=== PATIENT | female | born 1985 | race American Indian/Alaskan Native ===

== ENCOUNTER 2017-03-04 17:57 | Emergency (ER) | payer MEDICAID ==
[2017-03-04 18:10] VITALS: BP 133/77
[2017-03-04] MEDS ORDERED: Azithromycin 250 MG Tab PO ONE (19:19)
[2017-03-04] MEDS ORDERED: cefTRIAXone 250 MG, Lidocaine 1% 0.9 ML IM ONE ×2 (19:19)
[2017-03-04] MEDS ORDERED: metroNIDAZOLE 250 MG Tab PO ONE (19:19)
[2017-03-04] MEDS ORDERED: Phenazopyridine 95 MG Tab PO ONE (19:20)
--- NOTE | 2017-03-04 19:27 | EDM.PDOC ---
ED HPI GENERAL MEDICAL PROBLEM - General Chief Complaint: Abdominal Pain Stated Complaint: BODY ACHES, ABD PAINS, [id number] Time Seen by Provider: 03/04/17 19:17 Source of Information: Reports: Patient History Limitations: Reports: No Limitations - History of Present Illness INITIAL COMMENTS - FREE TEXT/NARRATIVE: This 32 yo female patient reports to the ED with left lower abdominal pain and pain with urination. The patient reports her symptoms started on Saturday (3 days ago) and been getting worse. The patient has not been seen in the clinic. Onset Date: 03/02/17 Duration: Constant, Getting Worse Location: Reports: Abdomen (llq) Quality: Reports: Ache, Dull Severity: Moderate Improves with: Reports: None Worsens with: Reports: None Associated Symptoms: Reports: No Other Symptoms Left Lower Abdomen Pain Score (Numeric/FACES): 7 - Related Data Allergies Allergy/AdvReac Type Severity Reaction Status Date / Time No Known Allergies Allergy Verified 03/04/17 18:06 Home Meds: Home Meds . 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: Musculoskeletal History: Reports: None Neurological History: Reports: None Psychiatric History: Reports: None Endocrine/Metabolic History: Reports: None Hematologic History: Reports: None Immunologic History: Reports: None Oncologic (Cancer) History: Reports: None Dermatologic History: Reports: None - Infectious Disease History Infectious Disease History: Reports: None - Past Surgical History GI Surgical History: Reports: Other (See Below) Other GI Surgeries/Procedures: pancreatic pseudocyst Female Surgical History: Reports: Section Musculoskeletal Surgical History: Reports: None Social & Family History - Tobacco Use Smoking Status *Q: Light Tobacco Smoker Years of Tobacco use: 8 Packs/Tins Daily: 0.1 Second Hand Smoke Exposure: No - Caffeine Use Caffeine Use: Reports: Coffee, Soda - Alcohol Use Days Per Week of Alcohol Use: 0 - Recreational Drug Use Recreational Drug Use: No ED ROS GENERAL - Review of Systems Review Of Systems: ROS reveals no pertinent complaints other than HPI. ED EXAM, RENAL/ - Physical Exam Exam: See Below Exam Limited By: No Limitations General Appearance: Alert, WD/WN, Moderate Distress Eye Exam: Bilateral Eye: EOMI, Normal Inspection, PERRL Ears: Normal External Exam, Normal Canal, Hearing Grossly Normal, Normal TMs Nose: Normal Inspection, Normal Mucosa, No Blood Throat/Mouth: Normal Inspection, Normal Lips, Normal Teeth, Normal Gums, Normal Oropharynx, Normal Voice, No Airway Compromise Head: Atraumatic, Normocephalic Neck: Normal Inspection, Supple, Non-Tender, Full Range of Motion Respiratory/Chest: No Respiratory Distress, Lungs Clear, Normal Breath Sounds, No Accessory Muscle Use, Chest Non-Tender Cardiovascular: Normal Peripheral Pulses, Regular Rate, Rhythm, No Edema, No Gallop, No JVD, No Murmur, No Rub GI/Abdominal: Tender (LLQ) (Female) Exam: Deferred Rectal (Female) Exam: Deferred Back Exam: Normal Inspection, Full Range of Motion, NT Extremities: Normal Inspection, Normal Range of Motion, Non-Tender, Normal Capillary Refill, No Pedal Edema Neurological: Alert, Oriented, CN II-XII Intact, Normal Cognition, Normal Gait, Normal Reflexes, No Motor/Sensory Deficits Psychiatric: Normal Affect, Normal Mood Skin Exam: Warm, Dry, Intact, Normal Color, No Rash Lymphatic: No Adenopathy Course - Vital Signs Last Recorded V/S: Last Vital Signs Temp 37.9 C 03/04/17 18:06 Pulse 112 H 03/04/17 18:06 Resp 16 03/04/17 18:06 BP 133/77 03/04/17 18:06 Pulse Ox 99 03/04/17 18:06 - Orders/Labs/Meds Orders: Active Orders 24 hr Category Date Time Status CHLAMYDIA TRACHOMATIS/GC AMPLF Routine Lab 03/04/17 19:13 Ordered CULTURE URINE [RM] Stat Lab 03/04/17 19:20 Ordered Labs: Laboratory Tests 03/04/17 Range/Units 18:20 Urine Color Yellow (YELLOW) Urine Appearance Slightly cloudy (CLEAR) Urine pH 6.0 (5.0-9.0) Ur Specific [place] 1.020 (1.005-1.030) Urine Protein 30 H (NEGATIVE) Urine Glucose (UA) Negative (NEGATIVE) Urine Ketones Negative (NEGATIVE) Urine Occult Blood Negative (NEGATIVE) Urine Nitrite Negative (NEGATIVE) Urine Bilirubin Small H (NEGATIVE) Urine Urobilinogen 1.0 (0.2-1.0) mg/dL Ur Leukocyte Esterase Negative (NEGATIVE) Urine RBC 0-5 /HPF Urine WBC 20-30 H (0-5/HPF) /HPF Ur Epithelial Cells Many H /HPF Urine Bacteria Many H (0-FEW/HPF) /HPF Urine Mucus Many H /LPF Urine Trichomonas Present H (0/HPF) /HPF Meds: Medications Discontinued Medications Generic Name Dose Route Start Last Admin Trade Name Cresencio PRN Reason Stop Dose Admin Azithromycin 1,000 mg 03/04/17 19:19 Zithromax PO 03/04/17 19:20 ONETIME ONE Ceftriaxone Sodium 250 mg/ 0 mg 03/04/17 19:19 Lidocaine HCl 0.9 ml IM 03/04/17 19:20 ONETIME ONE Metronidazole 250 mg 03/04/17 19:19 Metronidazole PO 03/04/17 19:20 ONETIME ONE Phenazopyridine HCl 190 mg 03/04/17 19:20 Urinary Pain Relief PO 03/04/17 19:21 ONETIME ONE Departure - Departure Time of Disposition: 19:22 Disposition: Home, Self-Care 01 Condition: Fair Clinical Impression: Trichimoniasis UTI (urinary tract infection) Qualifiers: Urinary tract infection type: site unspecified Hematuria presence: without hematuria Qualified Code(s): N39.0 - Urinary tract infection, site not specified - Discharge Information Instructions: Urinary Tract Infection, Adult, [id number], Sexually Transmitted Disease, [id number] Forms: ED Department Discharge Care Plan Goals: The patient was advised of the examination and lab results during the visit. The patient was given an oral dose of Metronidazole (2 grams), Rocephin (250 mg) , Azithromycin (1 gram) and Pyridium (190 mg) while in the ED. The patient was given a script for Cipro (500 mg) to take 1 by mouth 2 times per day for 3 days and Pyridium (200 mg) to take 1 by mouth 3 times per day for 2 days. The patient was advised to have her partner report to the clinic for STD testing and treatment also. If the patient has any additional symptoms or concerns, the patient should follow-up with her primary care facility or return to the emergency department. - My Orders Last 24 Hours: My Active Orders 03/04/17 19:13 CHLAMYDIA TRACHOMATIS/GC AMPLF Routine 03/04/17 19:20 CULTURE URINE [RM] Stat - Assessment/Plan Last 24 Hours: My Active Orders 03/04/17 19:13 CHLAMYDIA TRACHOMATIS/GC AMPLF Routine 03/04/17 19:20 CULTURE URINE [] Stat
== END 2017-03-04 19:43 | disposition home or self-care (01) ==
LOC: DL.ED 17:57 → EEVIPCON 17:57 → DL.ED 19:43
DX: A59.9 Trichomoniasis, unspecified (principal); N39.0 Urinary tract infection, site not specified; F17.210 Nicotine dependence, cigarettes, uncomplicated
CPT/HCPCS: 81001; 87086; 87491; 87591; 96372; 99284; A9270; J0696

== ENCOUNTER 2023-12-14 04:06 | Observation (INO) | payer MEDICAID ==
[2023-12-14] MEDS: Lidocaine 1% with EPINEPHrine 1:100,000 20 ML MDV INJECT ONE (04:38)
[2023-12-14] MEDS: Tranexamic Acid 1,000 MG/10 ML Vial TOP ONE (04:40)
[2023-12-14 04:41] LABS: BASOPHILS PERCENT AUTO 0.3 % (0.0-1.0); EOSINOPHILS PERCENT AUTO 0.7 % (1.0-3.0); HEMATOCRIT 38.4 % (37.0-47.0); HEMOGLOBIN 12.7 g/dL (12.0-16.0); LYMPHOCYTES PERCENT AUTO 16.3 % (20.5-50.1); MEAN CORPUSCULAR HEMOGLOBIN 30.3 pg (27.0-34.0); MEAN CORPUSCULAR HGB CONC 33.1 g/dL (33.0-35.0); MEAN CORPUSCULAR VOLUME 91.6 fL (80-100); MONOCYTES PERCENT AUTO 6.8 % (2-8); NEUTROPHILS PERCENT AUTO 75.9 % (42.2-75.2); PLATELET COUNT,PLT 78 10^3/uL (150-450); RED BLOOD CELL COUNT 4.19 10^6/uL (4.2-5.4); WHITE BLOOD CELL COUNT,WBC 6.2 10^3/uL (5.0-10.0)
[2023-12-14] MEDS: Tranexamic Acid 1,000 MG/10 ML Vial ONE (04:45)
[2023-12-14 05:01] LABS: A/G RATIO 0.9; ALBUMIN 3.7 g/dL (3.4-5.0); ANION GAP 13.8 mEq/L (7-13); BILIRUBIN TOTAL 1.5 mg/dL (0.2-1.0); BUN/CREATININE RATIO 13.4 (No establ ref range); CALCIUM 8.3 mg/dL (8.5-10.1); CREATININE 0.97 mg/dL (0.55-1.02); EST CRCL DRUG DOSING (CG) 75.04 mL/min; POTASSIUM,K 3.8 mmol/L (3.5-5.1); PROTEIN TOTAL,TP 7.6 g/dL (6.4-8.2)
[2023-12-14 05:04] LABS: INR 1.1 (0.9-1.2); PROTHROMBIN TIME 11.3 SEC (9.0-12.0)
[2023-12-14] MEDS: Cephalexin 500 MG Cap PO ONE (06:00)
[2023-12-14] MEDS ORDERED: Sodium Chloride 0.9% 10 ML Syringe FLUSH PRN (07:02)
[2023-12-14 10:05] LABS: BASOPHILS PERCENT AUTO 0.3 % (0.0-1.0); HEMATOCRIT 32.9 % (37.0-47.0); HEMOGLOBIN 10.9 g/dL (12.0-16.0); LYMPHOCYTES PERCENT AUTO 18.8 % (20.5-50.1); MEAN CORPUSCULAR HEMOGLOBIN 30.6 pg (27.0-34.0); MEAN CORPUSCULAR HGB CONC 33.1 g/dL (33.0-35.0); MEAN CORPUSCULAR VOLUME 92.4 fL (80-100); MONOCYTES PERCENT AUTO 7.3 % (2-8); NEUTROPHILS PERCENT AUTO 72.6 % (42.2-75.2); PLATELET COUNT,PLT 64 10^3/uL (150-450); RED BLOOD CELL COUNT 3.56 10^6/uL (4.2-5.4); WHITE BLOOD CELL COUNT,WBC 5.7 10^3/uL (5.0-10.0)
[2023-12-14] MEDS: Lisinopril 10 MG Tab PO SCH (10:18)
[2023-12-14] MEDS: Gabapentin 100 MG Cap PO SCH (10:18)
[2023-12-14 11:38] VITALS: BP 131/68; PULSE 74
[2023-12-14] MEDS: oxyCODONE 5 MG Tab PO PRN (11:42)
[2023-12-14] MEDS: Ferrous Sulfate 325 MG Tab PO SCH (11:43)
[2023-12-14] MEDS: Cephalexin 500 MG Cap ONE (16:55)
[2023-12-14] MEDS: Cephalexin 500 MG Cap PO SCH (17:03)
[2023-12-14] MEDS ORDERED: Cephalexin 500 MG Cap PO ONE (17:49)
[2023-12-14] MEDS ORDERED: Gabapentin 100 MG Cap PO SCH (21:00)
== END 2023-12-14 17:50 | disposition home or self-care (01) ==
LOC: DL.ED 04:06 → DL.MS 06:03
PROVIDERS: ADMIT Family Medicine Adult Medicine; ATTEND Family Medicine Adult Medicine
DX: R04.0 Epistaxis (principal); D68.9 Coagulation defect, unspecified; C53.9 Malignant neoplasm of cervix uteri, unspecified; Z88.5 Allergy status to narcotic agent; Z79.899 Other long term (current) drug therapy
CPT/HCPCS: 36415; 80053; 85025; 85610; A9270; 30903; 99283; 99284-25; G0378; J3490

== ENCOUNTER 2024-04-03 16:15 | Emergency (ER) | payer MEDICAID ==
[2024-04-03] MEDS ORDERED: Sodium Chloride 0.9% 10 ML Syringe FLUSH PRN (17:18)
[2024-04-03 17:20] VITALS: BP 130/87; PULSE 105
[2024-04-03 17:37] LABS: BASOPHILS PERCENT AUTO 0.3 % (0.0-1.0); EOSINOPHILS PERCENT AUTO 0.3 % (1.0-3.0); HEMOGLOBIN 10.3 g/dL (12.0-16.0); LYMPHOCYTES PERCENT AUTO 13.7 % (20.5-50.1); MEAN CORPUSCULAR HEMOGLOBIN 30.5 pg (27.0-34.0); MEAN CORPUSCULAR HGB CONC 32.2 g/dL (33.0-35.0); MEAN CORPUSCULAR VOLUME 94.7 fL (80-100); MONOCYTES PERCENT AUTO 5.1 % (2-8); NEUTROPHILS PERCENT AUTO 80.6 % (42.2-75.2); PLATELET COUNT,PLT 82 10^3/uL (150-450); RED BLOOD CELL COUNT 3.38 10^6/uL (4.2-5.4); WHITE BLOOD CELL COUNT,WBC 7.9 10^3/uL (5.0-10.0)
[2024-04-03] MEDS: Ondansetron 4 MG/2 ML SDV IVPUSH ONE (17:38)
[2024-04-03] MEDS: Sodium Chloride 0.9% 1,000 ML IV ONE ×2 (17:38→18:45)
[2024-04-03 17:56] LABS: ALANINE AMINOTRANSFERASE,ALT 32 U/L (14-59); ALBUMIN 3.1 g/dL (3.4-5.0); ALKALINE PHOSPHATASE 111 U/L (46-116); ASPARTATE AMNIOTRANSFERASE,AST 25 U/L (15-37); BILIRUBIN TOTAL 1.6 mg/dL (0.2-1.0); BLOOD UREA NITROGEN,BUN 35 mg/dL (7-18); BUN/CREATININE RATIO 39.3 (No establ ref range); CALCIUM 8.9 mg/dL (8.5-10.1); CARBON DIOXIDE,CO2 23 mmol/L (21-32); CHLORIDE,CL 106 mmol/L (98-107); CREATININE 0.89 mg/dL (0.55-1.02); EST CRCL DRUG DOSING (CG) 79.45 mL/min; GLUCOSE RANDOM 108 mg/dL (70-99); MAGNESIUM 1.4 mg/dL (1.8-2.4); PROTEIN TOTAL,TP 6.4 g/dL (6.4-8.2); SODIUM,NA 137 mmol/L (136-145)
[2024-04-03 17:57] LABS: A/G RATIO 0.94; C-REACTIVE PROTEIN < 0.50 ng/dL (<=0.50); ESTIMATED GFR 85 mL/min (>=60)
[2024-04-03] MEDS: Magnesium Sulfate/Water 2 GM in Premix Bag 1 BAG IV ONE (18:44)
== END 2024-04-03 19:58 | disposition home or self-care (01) ==
LOC: DL.ED 16:15
DX: T67.5XXA Heat exhaustion, unspecified, initial encounter (principal); Z79.899 Other long term (current) drug therapy; Z88.5 Allergy status to narcotic agent; X30.XXXA Exposure to excessive natural heat, initial encounter
CPT/HCPCS: 36415; 80053; 83735; 85025; 86140; 96361; 96365; 96375; 99283; 99284-25; J1642; J2405; J3475; J7030

== ENCOUNTER 2025-02-06 18:58 | Emergency (ER) | payer MEDICAID ==
[2025-02-06] MEDS ORDERED: Sodium Chloride 0.9% 10 ML Syringe FLUSH PRN (19:57)
[2025-02-06] MEDS: Lactated Ringers 1,000 ML IV ONE (20:03)
[2025-02-06] MEDS: Ondansetron 4 MG/2 ML SDV IVPUSH PRN (20:08)
[2025-02-06 20:13] LABS: BASOPHILS PERCENT AUTO 0.3 % (0.0-1.0); EOSINOPHILS PERCENT AUTO 1.2 % (1.0-3.0); HEMOGLOBIN 9.9 g/dL (12.0-16.0); LYMPHOCYTES PERCENT AUTO 17.8 % (20.5-50.1); MEAN CORPUSCULAR HEMOGLOBIN 30.6 pg (27.0-34.0); MEAN CORPUSCULAR VOLUME 92.6 fL (80-100); MONOCYTES PERCENT AUTO 7.8 % (2-8); NEUTROPHILS PERCENT AUTO 72.9 % (42.2-75.2); PLATELET COUNT,PLT 95 10^3/uL (150-450); RED BLOOD CELL COUNT 3.24 10^6/uL (4.2-5.4); WHITE BLOOD CELL COUNT,WBC 6.9 10^3/uL (5.0-10.0)
[2025-02-06 20:30] LABS: ALBUMIN 2.4 g/dL (3.4-5.0); ANION GAP 11.1 mEq/L (7-13); BILIRUBIN TOTAL 1.1 mg/dL (0.2-1.0); BUN/CREATININE RATIO 32.6 (No establ ref range); CALCIUM 8.8 mg/dL (8.5-10.1); CREATININE 0.89 mg/dL (0.55-1.02); EST CRCL DRUG DOSING (CG) 78.66 mL/min; MAGNESIUM 1.4 mg/dL (1.8-2.4); POTASSIUM,K 4.1 mmol/L (3.5-5.1); PROTEIN TOTAL,TP 5.4 g/dL (6.4-8.2)
[2025-02-06 20:31] LABS: A/G RATIO 0.8
[2025-02-06] MEDS: Take Home: Ondansetron 4 MG Tab.DIS, 5 Tab Pack PO ONE (20:49)
[2025-02-06 21:06] LABS: APPEARANCE,URINE CLEAR (CLEAR); BILIRUBIN,URINE NEGATIVE (NEGATIVE); COLOR,URINE YELLOW (YELLOW); GLUCOSE,URINE NEGATIVE (NEGATIVE); KETONES,URINE NEGATIVE (NEGATIVE); LEUKOCYTE ESTERASE,URINE NEGATIVE (NEGATIVE); NITRITE,URINE NEGATIVE (NEGATIVE); OCCULT BLOOD,URINE NEGATIVE (NEGATIVE); PROTEIN,URINE 30 (NEGATIVE)
[2025-02-06] MEDS: Magnesium Sulfate 2 GM/50 mL 2 GM in Premix Bag 1 BAG IV ONE (21:23)
[2025-02-06 21:56] VITALS: BP 127/75; PULSE 83
[2025-02-06 21:57] LABS: BACTERIA,URINE FEW /HPF (0-FEW/HPF); EPITHELIAL CELLS,URINE FEW /HPF (NOT SEEN); MUCUS,URINE FEW /LPF (NOT SEEN); RBC,URINE 0-5 /HPF (0-5)
[2025-02-06] MEDS: Metoclopramide 10 MG/2 ML SDV IVPUSH ONE (22:34)
[2025-02-06] MEDS: LORazepam 1 MG Tab PO ONE (22:53)
== END 2025-02-06 23:06 | disposition home or self-care (01) ==
LOC: DL.ED 18:58
DX: R11.2 Nausea with vomiting, unspecified (principal); T45.1X5A Adverse effect of antineoplastic and immunosuppressive drugs, initial encounter; E83.42 Hypomagnesemia; G25.81 Restless legs syndrome; D64.9 Anemia, unspecified; Z86.16 Personal history of COVID-19; Z88.5 Allergy status to narcotic agent; Z79.899 Other long term (current) drug therapy
CPT/HCPCS: 36415; 80053; 81001; 83735; 85025; 96361; 96365; 96375; 99284; 99285; A9270; J1642; J2405; J2765; J3475; J7120; Q0162

== ENCOUNTER 2025-03-18 12:07 | Emergency (ER) | payer MEDICAID ==
[2025-03-18] MEDS: Iopamidol 612 MG/ML 100 ML Bottle IVPUSH ONE (12:28)
[2025-03-18 12:49] LABS: BASOPHILS PERCENT AUTO 0.4 % (0.0-1.0); EOSINOPHILS PERCENT AUTO 0.9 % (1.0-3.0); LYMPHOCYTES PERCENT AUTO 8.4 % (20.5-50.1); MONOCYTES PERCENT AUTO 2.5 % (2-8); NEUTROPHILS PERCENT AUTO 87.8 % (42.2-75.2); PLATELET COUNT,PLT 83 10^3/uL (150-450); RED BLOOD CELL COUNT 2.20 10^6/uL (4.2-5.4); WHITE BLOOD CELL COUNT,WBC 5.7 10^3/uL (5.0-10.0)
[2025-03-18 13:03] LABS: ALANINE AMINOTRANSFERASE,ALT 43.0 U/L (14-59); ASPARTATE AMNIOTRANSFERASE,AST 36.0 U/L (15-37); BILIRUBIN TOTAL 1.1 mg/dL (0.2-1.0); BLOOD UREA NITROGEN,BUN 34.0 mg/dL (7-18); CARBON DIOXIDE,CO2 24.0 mmol/L (21-32); CHLORIDE,CL 109.0 mmol/L (98-107); CREATININE 1.31 mg/dL (0.55-1.02); GLUCOSE RANDOM 106.0 mg/dL (70-99); PHOSPHORUS 4.3 mg/dL (2.6-4.7); POTASSIUM,K 4.3 mmol/L (3.5-5.1); PROTEIN TOTAL,TP 4.3 g/dL (6.4-8.2); SODIUM,NA 140.0 mmol/L (136-145)
[2025-03-18 13:05] LABS: A/G RATIO 0.87; EST CRCL DRUG DOSING (CG) 55.51 mL/min; ESTIMATED GFR 53.0 mL/min (>=60)
[2025-03-18] MEDS ORDERED: Sodium Chloride 0.9% 10 ML Syringe FLUSH PRN (14:34)
[2025-03-18] MEDS: Ondansetron 4 MG/2 ML SDV IVPUSH ONE (17:07)
[2025-03-18 19:20] VITALS: BP 136/76; PULSE 70
== END 2025-03-18 20:56 | disposition home or self-care (01) ==
LOC: DL.ED 12:07
DX: D64.9 Anemia, unspecified (principal); Z88.5 Allergy status to narcotic agent; Z79.899 Other long term (current) drug therapy; Z86.16 Personal history of COVID-19
CPT/HCPCS: 36415; 36430; 74177; 80053; 83690; 83735; 84100; 85025; 86850; 86900; 86901; 86920; 86922; 96361; 96374; 99284; A9270; J1642; J2405; J7030; P9016; Q9967